=== PATIENT | female | born 1990 | race Caucasian/White ===

== ENCOUNTER 2017-11-02 04:55 | Observation (INO) ==
[2017-11-02] MEDS ORDERED: Ringers Solution, Lactated 1,000 ML ONE (05:10)
[2017-11-02] MEDS ORDERED: miSOPROStol 100 MCG TABLET VG ONE (05:45)
[2017-11-02 05:50] LABS: Basophils % 0.2 %; Eosinophils # 0.4 K/mcL (0.0-0.6); Eosinophils % 3.3 %; Hematocrit 37.8 % (35.3-44.9); Hemoglobin 13.3 g/dL (11.5-15.4); Immature Granulocytes % 0.4 % (0-4); Lymphocytes # 3.4 K/mcL (0.6-4.6); Lymphocytes % 30.2 %; Mean Corpuscular HGB Conc 35.2 g/dL (31.6-35.5); Mean Corpuscular Hemoglobin 31.1 pg (28.0-33.3); Mean Corpuscular Volume 88.5 fL (83.0-100.0); Monocytes # 0.6 K/mcL (0.0-1.3); Monocytes % 5.7 %; Neutrophils # 6.7 K/mcL (1.6-8.9); Platelet Count 215 K/mcL (140-400); Red Blood Count 4.27 M/mcL (3.82-4.97); Red Cell Distribution Width 12.7 % (11.5-14.5); Segmented Neutrophils % 60.2 %
[2017-11-02] MEDS ORDERED: Nicotine 14 MG PATCH.TD24 TD SCH (06:36)
[2017-11-02] MEDS ORDERED: *HR* OxyCODONE Immed Rel 5 MG TABLET PO PRN (06:54)
[2017-11-02] MEDS: Ringers Solution, Lactated 1,000 ML IVC SCH ×2 (08:12→12:17)
[2017-11-02] MEDS ORDERED: *HR* FentaNYL (PF) 100 MCG/2 ML VIAL EP ONE (08:12)
[2017-11-02] MEDS ORDERED: *HR* Ropivacaine/PF 0.2% 20 ML VIAL EP ONE (08:12)
[2017-11-02] MEDS ORDERED: Epidural Premix (fent/bupiv) 110 ML EP SCH ×2 (08:15→15:30)
[2017-11-02] MEDS ORDERED: Epidural Premix (fent/bupiv) 110 ML EP ONE (08:19)
[2017-11-02] MEDS ORDERED: *HR* Ropivacaine/PF 0.2% 20 ML VIAL ONE (08:20)
--- NOTE | 2017-11-02 08:57 | Anesthesia Evaluation PreOp ---
Date of Encounter: 11/02/17 Time of Encounter: 08:00 - Past History Planned Operation: linda Cardiac History: Denies any Significant Hx Pulmonary History: Smoker (1 ppd), Pack/yr (6) IRON CASTER History: Denies Any Significant HX Other Medical History: GERD, Other (anxiety, depression) Anesthesia History: No Prior Anesthetic Complications, Past Anesthesia (hernia, thumb) : Yes Test: Positive Alcohol Use: none Drug use: none, other (on subutex, no drug use during ) Medications and Allergies Escitalopram [Lexapro] 5 mg PO DAILY 08/08/16 [History] Azithromycin [Azithromycin 6-Tab Pack] 250 mg PO PER PKG DI 10/28/16 [History] Dicyclomine [Bentyl] 10 mg PO QID #10 capsule 04/18/17 [Rx] Buprenorphine HCl [Subutex] 1 tab PO BID 11/02/17 [History] Buspirone HCl [Buspar] 10 mg PO BID 11/02/17 [History] FLUoxetine HCl [PROzac] 50 mg PO DAILY 11/02/17 [History] 3 Allergy/AdvReac Type Severity Reaction Status Date / Time No Known Allergies Allergy Verified 11/02/17 05:46 - Meds/Allergy Pre-op Review Medications Reviewed: Yes Allergies Reviewed: Yes Beta Blockers on Current Med List: No Anesthesia Results - Labs 11/02/17 05:25 Anesthesia Exam 130/76 101 15 fht 0 Height: 5'4" Weight: 56 Pain Scale: 3 Pain Scale Used: Numeric (1 - 10) - HEENT Pupil (Motor): Pupils equal Mallampati: II Teeth: Normal Oral Opening: Greater than 3 - IRON CASTER LOC: Oriented IRON CASTER Motor: Normal RUE, Normal LUE, Normal RLE, Normal LLE, Normal Face IRON CASTER Sensory: Normal: RUE, LUE, RLE, LLE, Face - Cardiac Rhythm: Regular Murmur: None - Pulmonary Breath Sounds: bilateral Clear Respiratory Effort: Symmetrical Anesthesia Assess/Plan ASA Score: 2 Modified [place] Scale for Level of Consciousness: Cooperative, oriented, and tranquil Anesthetic Plan: Regional Autologous Blood: No Monitoring Plan: Standard Monitors Recovery Plan: Other (risks discussed, questions answered, consented)
[2017-11-02] MEDS ORDERED: FLUoxetine HCl 10 MG CAPSULE PO SCH (09:00)
[2017-11-02] MEDS ORDERED: *HR* Buprenorphine HCl 8 MG TAB.SUBL SL SCH (09:00)
--- NOTE | 2017-11-02 09:01 | Anesthesia Procedures ---
Date of Encounter: 11/02/17 Time of Encounter: 08:59 Procedures: Anesthesia - Epidural/Spinal Patient ID/Chart reviewed: Yes Patient examined: Yes OB Eval: Gestational age: 24 OB Eval: : 2 OB Eval: Hx Para: 0 OB Eval: Dilated at (cm): 4 OB Eval: Contractions: Non-stressed pattern Consent Obtained: Yes Supplemental Oxygen: None/Room Air Site Prep: Aseptic Technique, Sterile prep and drape, 0.5% Chlorhexidine/Alcohol Patient position: upright Local Anesthetic: Lidocaine 1% Amount of Local Anesthetic used: 4 Touhy Needle Gauge: 18 Touhy Needle Depth (cm): 7 Catheter Depth at Skin (cm): 15 Test Dose (1.5% Lido + Epi): Volume given (mls): 3 Test Dose Result: Negative Loading Dose: Fentanyl (mcg): 100 Loading Dose: Other: rop 0.2% 10 cc Loading Dose Administered: Thru Touhy Needle Infusion Med: 0.125% Bupivacaine w/ 2 mcg/ml Fentanyl Infusion Rate (mls/hr): 14 (pcea 5 cc q 30 ") Catheter Secured in Place: Tegaderm Interspace Used: L2-L3 Loss of Resistance (KALE): Yes Blood: No CSF: No Paresthesia: No Procedure: aseptic, tolerated well, effective Vitals + FHT's: 122/78 101 16 fht 0
[2017-11-02] MEDS ORDERED: Ondansetron 4 MG/2 ML VIAL IVP PRN (09:07)
[2017-11-02] MEDS: miSOPROStol 100 MCG TABLET VG SCH ×2 (09:35→13:20)
--- NOTE | 2017-11-02 09:45 | OB/GYN History & Physical ---
Date of Encounter: 11/02/17 Time of Encounter: 09:43 Assessment and Plan (1) demise Current visit: Yes Status: Acute loading dose of cytotec 800mcg followed by cytotec 400mcg dose #1 given, will give another dose of 400mcg of cytotec in 4 hrs, ok for epidural, give dose of subutex and no IV narcotics. History of Present Illness HPI: Ms. Sarabia is a 27 year old female @ 22+ weeks measuring 19 weeks on a growth U/S done 2 days ago presenting with an IUFD. Her NT and QUAD screens were abnormal, she saw [facility] and when they did a U/S, an FDIU was noted. No LOF, VB or cramping upon arrival to L&D. She has a history of drug use and is on Subutex. Past Med Surg Social Fam HX - Past Medical History Medical history: no medical history Psychiatric history: anxiety, depression - Past Surgical History Surgical History: non-contributory - Social History Smoking Status: Light tobacco smoker Smokeless Tobacco Status: No Alcohol use: none Drug use: none, other (on subutex, no drug use during ) - Family History Mother Adopted: Yes Hx Family Cardiac Disorders: No Hx Family Respiratory Disorders: No Hx Family Cancer: No Hx Family GI Disorders: No Hx Family Genitourinary Disorders: No Hx Family Endocrine Disorder: No Hx Family Musculoskeletal Disorders: No Hx Family Neuromuscular Disorders: No Hx Family Neurologic Disorders: No Hx Family HEENT Disorders: No Hx Family Autoimmune Disorders: No Hx Family Reproductive Disorders: No Hx Family Psychosocial Disorders: Yes (pt reports mental health issues with maternal mother) Obstetrical History - Pregnancies : 2 Para: 1 Term: 0 : 0 Ab's: 1 Livin Medications and Allergies Escitalopram [Lexapro] 5 mg PO DAILY 08/08/16 [History] Azithromycin [Azithromycin 6-Tab Pack] 250 mg PO PER PKG DI 10/28/16 [History] Dicyclomine [Bentyl] 10 mg PO QID #10 capsule 04/18/17 [Rx] Buprenorphine HCl [Subutex] 1 tab PO BID 11/02/17 [History] Buspirone HCl [Buspar] 10 mg PO BID 11/02/17 [History] FLUoxetine HCl [PROzac] 50 mg PO DAILY 11/02/17 [History] 3 Allergy/AdvReac Type Severity Reaction Status Date / Time No Known Allergies Allergy Verified 11/02/17 05:46 Review of System OB All systems PM: reviewed and no additional remarkable complaints except as stated Exam - Constitutional Constitutional: no acute distress - HEENT HEENT: Normocephaly - Neck Neck exam: full ROM - Lungs Respiratory exam: CTAB - Cardiovascular Cardiovascular exam: RRR - Abdomen Abdomen: Present: non tender Results Result Diagrams: 11/02/17 05:25 All other labs normal.
--- NOTE | 2017-11-02 12:54 | OB Labor Progress Note ---
Date of Encounter: 11/02/17 Time of Encounter: 12:51 Labor Progress Note - Subjective Subjective: she is s/p epidural, has a fever of 100.9 prob from cytotec, will give Tylenol now and recheck in 1 hr - Vital Signs Vital Signs: VSS except for T of 100.9 - Plan Plan: give 2nd dose of cytotec now
[2017-11-02] MEDS ORDERED: Acetaminophen 325 MG TABLET PO PRN (13:05)
[2017-11-02] MEDS ORDERED: Ibuprofen 600 MG TABLET PO ONE (16:00)
--- NOTE | 2017-11-02 18:57 | OB Labor Progress Note ---
Date of Encounter: 11/02/17 Time of Encounter: 18:54 Labor Progress Note - Plan Plan: I spoke to [facility] and expressed my concern about the fevers she has started having which I think might be from cytotec. Her last temp was 100.5 She has received only 2 doses of cytotec(400mcg) after a loading of 800mcg. I was going to do a D &E but [facility] is not equipped with the instruments I need so I asked for a transfer. They have agreed for the transfer. Vitals: BP 90's-110's/50-60's since 5AM(Induction started at 5AM) P:70-106 since 5AM
[2017-11-02 20:06] LABS: Basophils % 0.1 %; Eosinophils # 0.1 K/mcL (0.0-0.6); Hematocrit 39.3 % (35.3-44.9); Hemoglobin 13.8 g/dL (11.5-15.4); Immature Granulocytes % 0.3 % (0-4); Lymphocytes % 14.9 %; Mean Corpuscular HGB Conc 35.1 g/dL (31.6-35.5); Mean Corpuscular Hemoglobin 30.9 pg (28.0-33.3); Mean Corpuscular Volume 88.1 fL (83.0-100.0); Mean Platelet Volume 10.1 fL (9.4-12.4); Monocytes # 0.9 K/mcL (0.0-1.3); Monocytes % 6.4 %; Neutrophils # 10.6 K/mcL (1.6-8.9); Platelet Count 218 K/mcL (140-400); Red Blood Count 4.46 M/mcL (3.82-4.97); Red Cell Distribution Width 12.4 % (11.5-14.5); Segmented Neutrophils % 77.3 %
[2017-11-02 20:33] LABS: Alanine Aminotransferase 6 Units/L (7-52); Albumin 3.1 g/dL (3.5-5.7); Albumin/Globulin Ratio 1.4 (1.1-2.2); Alkaline Phosphatase 59 Units/L (34-104); Aspartate Amino Transferase 11 Units/L (13-39); BUN/Creatinine Ratio 13 (6-26); Bilirubin,Total 0.4 mg/dL (0.3-1.0); Blood Urea Nitrogen 6 mg/dL (6-20); Calcium 8.2 mg/dL (8.6-10.3); Carbon Dioxide 24 mEq/L (23-29); Chloride 108 mEq/L (98-107); Globulin 2.2 g/dL (2.4-3.5); Glucose 92 mg/dL (70-105); Osmolality,Calculated 277 (280-300); Potassium 3.3 mEq/L (3.5-5.1); Sodium 135 mEq/L (136-145); Total Protein 5.3 g/dL (6.4-8.9); eGFR For African Americans > 60 (> 60); eGFR For Non-African Americans > 60 (> 60)
== END 2017-11-02 20:20 | disposition short-term general hospital (02) ==
LOC: 1NENULAB 04:55 → INTOOBSV 04:55
PROVIDERS: ADMIT Student in an Organized Health Care Education/Training Program; ATTEND Student in an Organized Health Care Education/Training Program